=== PATIENT | male | born 1965 ===

== ENCOUNTER 2020-04-15 09:43 | Inpatient (IN) ==
[2020-04-15] MEDS ORDERED: KETOROLAC 15 MG/1 ML VIAL IV PRN (12:08)
[2020-04-15] MEDS ORDERED: HYDROmorphone 2 MG/1 ML VIAL IV PRN (12:08)
[2020-04-15] MEDS ORDERED: ONDANSETRON 4 MG/2 ML VIAL IV PRN (12:08)
[2020-04-15] MEDS ORDERED: PROMETHAZINE 25 MG/1 ML VIAL IM PRN (12:08)
[2020-04-15 12:38] LABS: Basophils % 0.2 % (0.0-0.8); Hematocrit 38.3 VOL% (42.0-52.0); Hemoglobin 12.6 GM/DL (14.0-18.0); Immature Granulocytes % 0.4 %; Immature Granulocytes Absolute 0.05 #; Lymphocytes # 1.9 10*3/uL (1.4-4.0); Lymphocytes % 15.8 % (21.2-54.2); Mean Corpuscular HGB Conc 32.9 GM/DL (32-36); Mean Corpuscular Volume 89.5 FL (87-102); Mean Platelet Volume 9.8 FL (9.6-12.0); Monocytes % 9.9 % (1.7-12.7); Neutrophils % 73.7 % (38.7-73.9); Platelet Count 231 T/CUMM (130-400); Red Blood Count 4.28 MC/CUMM (3.8-5.5); Red Cell Distribution Width 13.2 % (9.3-17.3); White Blood Count 12.2 T/CUMM (4-12)
[2020-04-15] MEDS: LACTATED RINGERS 1,000 ML IV SCH ×2 (12:41→20:40)
[2020-04-15 12:52] LABS: Albumin 2.2 G/DL (3.4-5.0); Bilirubin,Total 0.8 MG/DL (0.2-1.0); Calcium 8.3 MG/DL (8.5-10.1); Total Protein 7.4 G/DL (5.0-7.5)
[2020-04-15] MEDS: cefTRIAXone 1,000 MG in SYRINGE 1 EACH IV SCH (17:20)
[2020-04-16] MEDS: LACTATED RINGERS 1,000 ML IV SCH (04:17)
[2020-04-16 06:01] LABS: Basophils % 0.2 % (0.0-0.8); Eosinophils # 0.1 10*3/uL (0.0-0.87); Eosinophils % 0.7 % (0.00-10.9); Hematocrit 32.3 VOL% (42.0-52.0); Immature Granulocytes % 0.5 %; Immature Granulocytes Absolute 0.04 #; Lymphocytes # 1.8 10*3/uL (1.4-4.0); Lymphocytes % 20.6 % (21.2-54.2); Mean Corpuscular HGB Conc 32.5 GM/DL (32-36); Mean Corpuscular Volume 90.7 FL (87-102); Mean Platelet Volume 10.3 FL (9.6-12.0); Monocytes % 12.9 % (1.7-12.7); Neutrophils % 65.1 % (38.7-73.9); Red Blood Count 3.56 MC/CUMM (3.8-5.5); Red Cell Distribution Width 13.3 % (9.3-17.3); White Blood Count 8.7 T/CUMM (4-12)
[2020-04-16 06:11] LABS: Albumin 1.8 G/DL (3.4-5.0); Bilirubin,Total 1.1 MG/DL (0.2-1.0); Osmolality,Calculated 275.7 MOS/KG (273-304)
[2020-04-16 06:13] LABS: Hemoglobin 10.5 GM/DL (14.0-18.0); Platelet Count 182 T/CUMM (130-400)
[2020-04-16] MEDS: DEXT 5% NACL 0.45% KCL 40 MEQ 40 MEQ/1,000 ML BAG IV SCH ×2 (09:56→23:38)
[2020-04-16] MEDS: cefTRIAXone 1,000 MG in SYRINGE 1 EACH IV SCH (09:57)
[2020-04-16] MEDS: POLYETHYLENE GLYCOL POWDER 17 GM PACK PO PRN ×2 (09:57→23:38)
[2020-04-17 08:35] LABS: Basophils % 0.2 % (0.0-0.8); Eosinophils # 0.1 10*3/uL (0.0-0.87); Eosinophils % 2.4 % (0.00-10.9); Hematocrit 32.7 VOL% (42.0-52.0); Hemoglobin 10.4 GM/DL (14.0-18.0); Immature Granulocytes % 0.7 %; Immature Granulocytes Absolute 0.04 #; Lymphocytes # 1.5 10*3/uL (1.4-4.0); Lymphocytes % 26.6 % (21.2-54.2); Mean Corpuscular HGB Conc 31.8 GM/DL (32-36); Mean Corpuscular Volume 91.3 FL (87-102); Mean Platelet Volume 9.8 FL (9.6-12.0); Neutrophils % 57.1 % (38.7-73.9); Platelet Count 208 T/CUMM (130-400); Red Blood Count 3.58 MC/CUMM (3.8-5.5); Red Cell Distribution Width 13.1 % (9.3-17.3); White Blood Count 5.8 T/CUMM (4-12)
[2020-04-17 08:51] LABS: Albumin 1.8 G/DL (3.4-5.0); Bilirubin,Total 0.5 MG/DL (0.2-1.0); Calcium 8.1 MG/DL (8.5-10.1); Osmolality,Calculated 275.5 MOS/KG (273-304); Potassium 3.8 MMOL/L (3.5-5.1); Total Protein 6.2 G/DL (5.0-7.5)
[2020-04-17] MEDS: cefTRIAXone 1,000 MG in SYRINGE 1 EACH IV SCH (09:35)
[2020-04-17 11:18] VITALS: BP 166/75
[2020-04-17] MEDS: DEXT 5% NACL 0.45% KCL 40 MEQ 40 MEQ/1,000 ML BAG IV SCH (13:05)
== END 2020-04-17 13:50 | disposition home or self-care (01) | DRG 921 ==
LOC: N.ADMINP 09:56 → N.5E 11:30
PROVIDERS: ADMIT Surgery; ATTEND Surgery